=== PATIENT | female | born 1965 | race Caucasian/White ===

== ENCOUNTER 2017-01-13 13:51 | Emergency (ER) | payer MEDICAID, OTHER ==
[~2017-01-13] VITALS: Ht 157.5 cm; Wt 65.8 kg
[2017-01-13] MEDS ORDERED: LEVO50TA5 (14:06)
[2017-01-13] MEDS ORDERED: RISP0.5T3 (14:06)
[2017-01-13] MEDS ORDERED: FLUO10CA9 (14:06)
[2017-01-13] MEDS ORDERED: ADV250INH (14:06)
[2017-01-13] MEDS ORDERED: ATOR1TAB21 (14:06)
[2017-01-13] MEDS ORDERED: ALBU17IN (14:06)
[2017-01-13] MEDS ORDERED: ALBUTEROL SULFATE 2.5 MG/0.5 ML INH NEB SOLN INH ONE (18:15)
[2017-01-13] MEDS ORDERED: IPRATROPIUM 0.5MG/ALBUTEROL 2.5MG INH SOL UD 3ML (DUONEB)(J7620) NEB ONE (18:15)
[2017-01-13] MEDS ORDERED: predniSONE 20 MG TAB PO ONE (18:15)
[2017-01-13] MEDS ORDERED: predniSONE 50 MG TAB PO ONE (18:15)
--- NOTE | 2017-01-13 19:15 | REP ---
Chest x-ray: Two views: History: Shortness of breath, history of right upper lobectomy. Comparison study: 07/15/2014. Findings: Patient is status post right thoracotomy with clips and sutures in the right chest unchanged. 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 There is tenting of the right hemidiaphragm as before. Heart is not enlarged. Lung de [place] are otherwise clear. Pleural angles are sharp. Pulmonary vasculature is not increased. No significant bony abnormality is seen. Impression: Postthoracotomy changes on the right. 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 No acute disease. Signed by Tae Betancourt MD 01/13/2017 07:47 P
[2017-01-13] MEDS ORDERED: PRED20TA PO (19:44)
[2017-01-13 19:52] VITALS: BP 130/70
== END 2017-01-13 19:57 | disposition home or self-care (01) ==
LOC: M ED 16:35
DX: J20.9 Acute bronchitis, unspecified (principal); E78.5 Hyperlipidemia, unspecified; E07.9 Disorder of thyroid, unspecified; F17.210 Nicotine dependence, cigarettes, uncomplicated; Z79.899 Other long term (current) drug therapy; I25.10 Atherosclerotic heart disease of native coronary artery without angina pectoris; J44.9 Chronic obstructive pulmonary disease, unspecified; F41.9 Anxiety disorder, unspecified

== ENCOUNTER 2018-05-31 20:13 | Inpatient (IN) | payer OTHER ==
[2018-05-31] MEDS: IPRATROPIUM 0.5MG/ALBUTEROL 2.5MG INH SOL UD 3ML (DUONEB)(J7620) NEB (20:52)
[2018-05-31 20:55] LABS: ABG BASE EXCESS 3.8 (-2.0-2.0); ABG HCO3 28.6 MEQ/L (22.0-26.0); ABG O2 SATURATION 86.6 % (95.0-99.0); ABG PARTIAL PRESSURE CO2 43.6 mmHg (35.0-45.0); ABG STANDARD HCO3 27.7 MEQ/L (22.0-26.0); ABG TOTAL CO2 29.9 MEQ/L (22.0-29.0); ABG pH (ARTERIAL) 7.434 UNITS (7.350-7.450)
[2018-05-31 21:48] LABS: BASO % 0.4 % (0.0-1.0); EOS % 0.5 % (0.0-3.0); HEMATOCRIT 32.6 % (36.0-47.0); HEMOGLOBIN 10.8 g/dl (12.0-15.5); IMMATURE GRANULOCYTE % 1.3 % (0-3.0); LYMPH # 0.5 10^3/uL (1.5-4.5); LYMPH % 6.5 % (24.0-44.0); MEAN CORPUSCULAR HEMOGLOBIN 30.4 pg (27.0-33.0); MEAN CORPUSCULAR HGB CONC 33.1 g/dl (32.0-36.5); MEAN CORPUSCULAR VOLUME 91.8 fl (80.0-96.0); MONO # 0.8 10^3/uL (0.0-0.8); MONO % 10.8 % (0.0-5.0); NEUTROPHILS # 6.3 10^3/uL (1.8-7.7); NEUTROPHILS % 80.5 % (36.0-66.0); PLATELET COUNT, AUTOMATED 325 10^3/uL (150-450); RED BLOOD COUNT 3.55 10^6/uL (4.00-5.40); RED CELL DISTRIBUTION WIDTH 16.2 % (11.5-14.5); WHITE BLOOD COUNT 7.8 10^3/uL (4.0-10.0)
[2018-05-31] MEDS: LevoFLOXacin IV 500 MG in APPROPRIATE DILUENT 1 EA IV (22:00)
[2018-05-31 22:10] LABS: LACTIC ACID SEPSIS PROTOCOL 0.6 MMOL/L (0.4-2.0)
[2018-05-31 22:11] LABS: ANION GAP 7 MEQ/L (8-16); BLOOD UREA NITROGEN 8 MG/DL (7-18); CALCIUM LEVEL 8.2 MG/DL (8.5-10.1); CARBON DIOXIDE LEVEL 30 MEQ/L (21-32); CHLORIDE LEVEL 99 MEQ/L (98-107); CREATININE FOR GFR 0.52 MG/DL (0.55-1.30); GLOMERULAR FILTRATION RATE > 60.0 (>51); GLUCOSE, FASTING 125 MG/DL (70-100); NT-PRO BNP 188 PG/ML (<125); POTASSIUM SERUM 3.7 MEQ/L (3.5-5.1); SODIUM LEVEL 136 MEQ/L (136-145)
[2018-05-31] MEDS: VANCOMYCIN HCL 750 MG, VIAL MATE ADAPTER 1 EACH in D5W 250 ML IV (22:59)
[2018-05-31] MEDS ORDERED: IPRATROPIUM 0.5MG/ALBUTEROL 2.5MG INH SOL UD 3ML (DUONEB)(J7620) NEB (23:00)
[2018-06-01] MEDS: methylPREDNISolone INJ 125 MG/2 ML VIAL (J2930) IV ×4 (01:30→23:46)
[2018-06-01] MEDS: IPRATROPIUM 0.5MG/ALBUTEROL 2.5MG INH SOL UD 3ML (DUONEB)(J7620) NEB ×4 (01:50→20:48)
[2018-06-01] MEDS: risperiDONE 0.5 MG TAB PO ×3 (02:17→23:46)
[2018-06-01] MEDS: ATORVASTATIN 20 MG TAB PO ×2 (02:17→20:13)
[2018-06-01 03:16] LABS: INFLUENZA A AMPLIFICATION NEGATIVE (NEGATIVE); INFLUENZA B AMPLIFICATION NEGATIVE (NEGATIVE)
[2018-06-01 07:12] LABS: BLOOD UREA NITROGEN 8 MG/DL (7-18); GLUCOSE, FASTING 125 MG/DL (70-100)
[2018-06-01 07:13] LABS: ANION GAP 6 MEQ/L (8-16); CALCIUM LEVEL 8.2 MG/DL (8.5-10.1); CARBON DIOXIDE LEVEL 31 MEQ/L (21-32); CHLORIDE LEVEL 97 MEQ/L (98-107); GLOMERULAR FILTRATION RATE > 60.0 (>51); POTASSIUM SERUM 3.5 MEQ/L (3.5-5.1); SODIUM LEVEL 134 MEQ/L (136-145)
[2018-06-01] MEDS: ONDANSETRON 4MG/2ML VIAL (J2405) IV (08:10)
[2018-06-01] MEDS: LEVOTHYROXINE 50MCG TABLET (0.05MG) PO (08:19)
[2018-06-01] MEDS: FLUoxetine 20 MG CAP PO (08:19)
[2018-06-01] MEDS: ENOXAPARIN 40 MG/0.4 ML SYRINGE (J1650) SC (08:19)
[2018-06-01 11:57] LABS: AMPHETAMINES URINE REFLEX NEGATIVE (NEGATIVE); BARBITURATES URINE REFLEX NEGATIVE (NEGATIVE); BENZODIAZEPINES URINE REFLEX NEGATIVE (NEGATIVE); CANNABINOIDS URINE REFLEX NEGATIVE (NEGATIVE); COCAINE METABOLITE URINE REFLE NEGATIVE (NEGATIVE); METHADONE URINE REFLEX NEGATIVE (NEGATIVE); PHENCYCLIDINE URINE REFLEX NEGATIVE (NEGATIVE)
[2018-06-01 12:37] LABS: OPIATES URINE REFLEX PENDING CONFIRMATION (NEGATIVE)
[2018-06-01] MEDS: LevoFLOXacin IV 750 MG in APPROPRIATE DILUENT 1 EA IV (20:13)
[2018-06-01] MEDS ORDERED: NON-FORMULARY COMPOUNDED MEDICATION PO (21:00)
[2018-06-01] MEDS: diphenhydrAMINE 25 MG CAP PO (21:12)
[2018-06-02] MEDS: IPRATROPIUM 0.5MG/ALBUTEROL 2.5MG INH SOL UD 3ML (DUONEB)(J7620) NEB ×3 (01:22→13:46)
[2018-06-02 06:17] LABS: BASO % 0.2 % (0.0-1.0); HEMATOCRIT 33.5 % (36.0-47.0); IMMATURE GRANULOCYTE % 1.7 % (0-3.0); LYMPH # 0.3 10^3/uL (1.5-4.5); LYMPH % 2.8 % (24.0-44.0); MEAN CORPUSCULAR HEMOGLOBIN 30.5 pg (27.0-33.0); MEAN CORPUSCULAR HGB CONC 32.8 g/dl (32.0-36.5); MEAN CORPUSCULAR VOLUME 92.8 fl (80.0-96.0); MONO # 0.3 10^3/uL (0.0-0.8); MONO % 3.2 % (0.0-5.0); NEUTROPHILS # 9.5 10^3/uL (1.8-7.7); NEUTROPHILS % 92.1 % (36.0-66.0); PLATELET COUNT, AUTOMATED 343 10^3/uL (150-450); RED BLOOD COUNT 3.61 10^6/uL (4.00-5.40); RED CELL DISTRIBUTION WIDTH 16.1 % (11.5-14.5); WHITE BLOOD COUNT 10.3 10^3/uL (4.0-10.0)
[2018-06-02 06:19] LABS: POSITIVE DIFF POS FLAG
[2018-06-02 06:46] LABS: ALBUMIN 2.7 GM/DL (3.2-5.2); ALBUMIN/GLOBULIN RATIO 0.75 (1.00-1.93); ALKALINE PHOSPHATASE 133 U/L (45-117); ALT/SGPT 22 U/L (12-78); ANION GAP 5 MEQ/L (8-16); AST/SGOT 26 U/L (7-37); BILIRUBIN,TOTAL 0.8 MG/DL (0.2-1.0); BLOOD UREA NITROGEN 8 MG/DL (7-18); CARBON DIOXIDE LEVEL 34 MEQ/L (21-32); CHLORIDE LEVEL 102 MEQ/L (98-107); CREATININE FOR GFR 0.64 MG/DL (0.55-1.30); FREE T4 1.29 NG/DL (0.76-1.46); GLOMERULAR FILTRATION RATE > 60.0 (>51); GLUCOSE, FASTING 121 MG/DL (70-100); MAGNESIUM LEVEL 2.2 MG/DL (1.8-2.4); POTASSIUM SERUM 4.8 MEQ/L (3.5-5.1); SODIUM LEVEL 141 MEQ/L (136-145); TOTAL PROTEIN 6.3 GM/DL (6.4-8.2)
[2018-06-02] MEDS: LEVOTHYROXINE 50MCG TABLET (0.05MG) PO (08:26)
[2018-06-02] MEDS: ENOXAPARIN 40 MG/0.4 ML SYRINGE (J1650) SC (08:26)
[2018-06-02] MEDS: methylPREDNISolone INJ 125 MG/2 ML VIAL (J2930) IV (08:26)
[2018-06-02] MEDS: FLUoxetine 20 MG CAP PO (08:26)
[2018-06-02 10:15] LABS: TOTAL T3 75.8 NG/DL (60.0-181.0)
[2018-06-02] MEDS ORDERED: LIDOCAINE 1% MDV 20ML VIAL As Ordered (11:58)
[2018-06-02] MEDS: ACETAMINOPHEN TAB 650MG DOSE (2X325MG) PO (12:51)
[2018-06-03] MEDS ORDERED: LEVOTHYROXINE 50MCG TABLET (0.05MG) PO (06:00)
[2018-06-03] MEDS ORDERED: predniSONE 20 MG TAB PO (09:00)
[2018-06-04 15:06] LABS: Opiates Negative (Cutoff=200)
== END 2018-06-02 16:13 | disposition home or self-care (01) | DRG 952 ==
LOC: M MSPAV 06-01 02:04 → M ED 20:13 → M ED INP 22:56
PROC: 07B63ZX Excision of Left Axillary Lymphatic, Percutaneous Approach, Diagnostic (ICD-10-PCS; principal; 2018-06-02)
DX: J18.9 Pneumonia, unspecified organism (principal); J96.01 Acute respiratory failure with hypoxia; J90 Pleural effusion, not elsewhere classified; C77.3 Secondary and unspecified malignant neoplasm of axilla and upper limb lymph nodes; J44.0 Chronic obstructive pulmonary disease with (acute) lower respiratory infection; Z90.2 Acquired absence of lung [part of]; J44.1 Chronic obstructive pulmonary disease with (acute) exacerbation; F41.9 Anxiety disorder, unspecified; F32.9 Major depressive disorder, single episode, unspecified; E78.5 Hyperlipidemia, unspecified; E03.9 Hypothyroidism, unspecified; R91.8 Other nonspecific abnormal finding of lung field; R60.0 Localized edema; Z85.118 Personal history of other malignant neoplasm of bronchus and lung; Z92.21 Personal history of antineoplastic chemotherapy; Z92.3 Personal history of irradiation; Z87.891 Personal history of nicotine dependence; Y95 Nosocomial condition; Z79.899 Other long term (current) drug therapy; Z91.041 Radiographic dye allergy status

== ENCOUNTER → 2018-06-02 | Outpatient (REF) | payer OTHER | LOC: M LAB REF 12:38 | DX: C34.90 Malignant neoplasm of unspecified part of unspecified bronchus or lung (principal) | CPT/HCPCS: 88300 ==

== ENCOUNTER 2018-06-18 17:58 | Inpatient (IN) | payer OTHER ==
[2018-06-18] MEDS: IPRATROPIUM 0.5MG/ALBUTEROL 2.5MG INH SOL UD 3ML (DUONEB)(J7620) NEB ×2 (18:42→21:47)
[2018-06-18 18:50] LABS: ABG BASE EXCESS 7.3 (-2.0-2.0); ABG HCO3 33.6 MEQ/L (22.0-26.0); ABG O2 SATURATION 89.2 % (95.0-99.0); ABG PARTIAL PRESSURE CO2 56.2 mmHg (35.0-45.0); ABG PARTIAL PRESSURE O2 56.4 mmHg (75.0-100.0); ABG TOTAL CO2 35.4 MEQ/L (22.0-29.0); ABG pH (ARTERIAL) 7.395 UNITS (7.350-7.450)
[2018-06-18 19:17] LABS: BASO % 0.2 % (0.0-1.0); EOS % 0.4 % (0.0-3.0); HEMATOCRIT 31.7 % (36.0-47.0); HEMOGLOBIN 10.5 g/dl (12.0-15.5); IMMATURE GRANULOCYTE % 1.1 % (0-3.0); LYMPH # 0.5 10^3/uL (1.5-4.5); LYMPH % 5.1 % (24.0-44.0); MEAN CORPUSCULAR HEMOGLOBIN 30.3 pg (27.0-33.0); MEAN CORPUSCULAR HGB CONC 33.1 g/dl (32.0-36.5); MEAN CORPUSCULAR VOLUME 91.4 fl (80.0-96.0); MONO # 0.9 10^3/uL (0.0-0.8); NEUTROPHILS # 8.7 10^3/uL (1.8-7.7); NEUTROPHILS % 84.2 % (36.0-66.0); PLATELET COUNT, AUTOMATED 234 10^3/uL (150-450); RED BLOOD COUNT 3.47 10^6/uL (4.00-5.40); RED CELL DISTRIBUTION WIDTH 15.3 % (11.5-14.5); WHITE BLOOD COUNT 10.3 10^3/uL (4.0-10.0)
[2018-06-18 19:28] LABS: INR 1.01; PROTHROMBIN TIME 13.4 SECONDS (12.1-14.4)
[2018-06-18] MEDS: ONDANSETRON 4MG/2ML VIAL (J2405) IV (19:28)
[2018-06-18 19:33] LABS: LIPASE 74 U/L (73-393)
[2018-06-18 19:42] LABS: ALBUMIN 2.8 GM/DL (3.2-5.2); ALKALINE PHOSPHATASE 129 U/L (45-117); ALT/SGPT 26 U/L (12-78); ANION GAP 6 MEQ/L (8-16); AST/SGOT 29 U/L (7-37); BILIRUBIN,DIRECT 0.2 MG/DL (0.0-0.2); BILIRUBIN,TOTAL 0.8 MG/DL (0.2-1.0); BLOOD UREA NITROGEN 11 MG/DL (7-18); CALCIUM LEVEL 8.4 MG/DL (8.5-10.1); CARBON DIOXIDE LEVEL 33 MEQ/L (21-32); CHLORIDE LEVEL 94 MEQ/L (98-107); CPK CREATINE PHOSPHOKINASE 40 U/L (26-192); CREATININE FOR GFR 0.49 MG/DL (0.55-1.30); GLOMERULAR FILTRATION RATE > 60.0 (>51); GLUCOSE, FASTING 110 MG/DL (70-100); POTASSIUM SERUM 3.9 MEQ/L (3.5-5.1); SODIUM LEVEL 133 MEQ/L (136-145); TOTAL PROTEIN 5.6 GM/DL (6.4-8.2); TROPONIN I < 0.02 NG/ML (< 0.10)
[2018-06-18 19:48] LABS: CK-MB VALUE MASS < 1.0 NG/ML (<3.6); NT-PRO BNP 174 PG/ML (<125)
[2018-06-18] MEDS: diphenhydrAMINE INJ 50MG/ML VIAL (J1200) IV (20:35)
[2018-06-18] MEDS ORDERED: ISOVUE-370 76% 100ML VIAL (Q9967) As Ordered (20:58)
[2018-06-19] MEDS: VANCOMYCIN HCL 1,000 MG, VIAL MATE ADAPTER 1 EACH in D5W 250 ML IV (01:15)
[2018-06-19] MEDS: FUROSEMIDE 40 MG/4 ML VIAL (J1940) IV (01:15)
[2018-06-19] MEDS: methylPREDNISolone INJ 125 MG/2 ML VIAL (J2930) IV (01:16)
[2018-06-19] MEDS: IPRATROPIUM 0.5MG/ALBUTEROL 2.5MG INH SOL UD 3ML (DUONEB)(J7620) NEB ×7 (02:00→23:21)
[2018-06-19] MEDS: PIPERACILLIN/TAZOBACTAM SOD 3.375 GM in D5W MINI-BAG PLUS 50 ML IV (02:33)
[2018-06-19] MEDS: AZITHROMYCIN INJ 500 MG, VIAL MATE ADAPTER 1 EACH in D5W 250 ML IV (02:48)
[2018-06-19] MEDS: ATORVASTATIN 20 MG TAB PO ×2 (02:48→21:14)
[2018-06-19] MEDS: risperiDONE 1 MG TAB PO (03:07)
[2018-06-19] MEDS: PIPERACILLIN/TAZOBACTAM SOD 4.5 GM in D5W MINI-BAG PLUS 50 ML IV ×4 (04:19→21:13)
[2018-06-19 04:33] LABS: INFLUENZA A AMPLIFICATION NEGATIVE (NEGATIVE); INFLUENZA B AMPLIFICATION NEGATIVE (NEGATIVE)
[2018-06-19] MEDS: HEPARIN SOD (PORCINE) 5000 UNITS/ML VIAL SC ×3 (06:24→21:13)
[2018-06-19] MEDS: methylPREDNISolone INJ 40 MG/1 ML VIAL (J2920) IV ×2 (09:56→17:16)
[2018-06-19] MEDS: PANTOPRAZOLE 40MG TAB (PROTONIX) PO (09:57)
[2018-06-19 12:37] LABS: HEMATOCRIT 31.9 % (36.0-47.0); HEMOGLOBIN 10.5 g/dl (12.0-15.5); MEAN CORPUSCULAR HEMOGLOBIN 30.3 pg (27.0-33.0); MEAN CORPUSCULAR HGB CONC 32.9 g/dl (32.0-36.5); MEAN CORPUSCULAR VOLUME 92.2 fl (80.0-96.0); PLATELET COUNT, AUTOMATED 227 10^3/uL (150-450); RED BLOOD COUNT 3.46 10^6/uL (4.00-5.40); RED CELL DISTRIBUTION WIDTH 15.1 % (11.5-14.5); WHITE BLOOD COUNT 7.3 10^3/uL (4.0-10.0)
[2018-06-19 13:01] LABS: ANION GAP 8 MEQ/L (8-16); BLOOD UREA NITROGEN 11 MG/DL (7-18); CALCIUM LEVEL 8.4 MG/DL (8.5-10.1); CARBON DIOXIDE LEVEL 33 MEQ/L (21-32); CHLORIDE LEVEL 89 MEQ/L (98-107); CREATININE FOR GFR 0.71 MG/DL (0.55-1.30); GLOMERULAR FILTRATION RATE > 60.0 (>51); GLUCOSE, FASTING 169 MG/DL (70-100); POTASSIUM SERUM 3.6 MEQ/L (3.5-5.1); SODIUM LEVEL 130 MEQ/L (136-145)
[2018-06-19] MEDS: FLUoxetine 10 MG CAP PO (17:16)
[2018-06-19] MEDS: ONDANSETRON 4MG/2ML VIAL (J2405) IV (18:34)
[2018-06-19] MEDS: guaiFENesin ER 600 MG TAB PO (21:14)
[2018-06-20] MEDS: methylPREDNISolone INJ 40 MG/1 ML VIAL (J2920) IV ×3 (00:35→17:55)
[2018-06-20] MEDS: AZITHROMYCIN INJ 500 MG, VIAL MATE ADAPTER 1 EACH in D5W 250 ML IV (00:35)
[2018-06-20] MEDS: risperiDONE 1 MG TAB PO ×2 (00:35→23:12)
[2018-06-20] MEDS: IPRATROPIUM 0.5MG/ALBUTEROL 2.5MG INH SOL UD 3ML (DUONEB)(J7620) NEB ×5 (02:00→19:55)
[2018-06-20] MEDS: HEPARIN SOD (PORCINE) 5000 UNITS/ML VIAL SC ×3 (05:49→21:06)
[2018-06-20] MEDS: PIPERACILLIN/TAZOBACTAM SOD 4.5 GM in D5W MINI-BAG PLUS 50 ML IV ×4 (05:49→23:12)
[2018-06-20] MEDS: guaiFENesin ER 600 MG TAB PO ×2 (09:17→21:05)
[2018-06-20] MEDS: PANTOPRAZOLE 40MG TAB (PROTONIX) PO (09:17)
[2018-06-20] MEDS: FLUoxetine 10 MG CAP PO (17:55)
[2018-06-20] MEDS: ATORVASTATIN 20 MG TAB PO (21:05)
[2018-06-21] MEDS: methylPREDNISolone INJ 40 MG/1 ML VIAL (J2920) IV ×3 (01:46→17:06)
[2018-06-21] MEDS: AZITHROMYCIN INJ 500 MG, VIAL MATE ADAPTER 1 EACH in D5W 250 ML IV (01:46)
[2018-06-21] MEDS: IPRATROPIUM 0.5MG/ALBUTEROL 2.5MG INH SOL UD 3ML (DUONEB)(J7620) NEB ×4 (01:58→20:07)
[2018-06-21] MEDS: PIPERACILLIN/TAZOBACTAM SOD 4.5 GM in D5W MINI-BAG PLUS 50 ML IV ×4 (04:22→22:12)
[2018-06-21] MEDS: HEPARIN SOD (PORCINE) 5000 UNITS/ML VIAL SC ×3 (05:35→22:12)
[2018-06-21] MEDS: PANTOPRAZOLE 40MG TAB (PROTONIX) PO (08:20)
[2018-06-21] MEDS: guaiFENesin ER 600 MG TAB PO ×2 (08:21→20:12)
[2018-06-21 12:10] LABS: HEMATOCRIT 31.2 % (36.0-47.0); HEMOGLOBIN 10.2 g/dl (12.0-15.5); MEAN CORPUSCULAR HEMOGLOBIN 30.4 pg (27.0-33.0); MEAN CORPUSCULAR HGB CONC 32.7 g/dl (32.0-36.5); MEAN CORPUSCULAR VOLUME 92.9 fl (80.0-96.0); PLATELET COUNT, AUTOMATED 286 10^3/uL (150-450); RED BLOOD COUNT 3.36 10^6/uL (4.00-5.40); RED CELL DISTRIBUTION WIDTH 15.6 % (11.5-14.5); WHITE BLOOD COUNT 21.2 10^3/uL (4.0-10.0)
[2018-06-21 12:32] LABS: ANION GAP 3 MEQ/L (8-16); BLOOD UREA NITROGEN 12 MG/DL (7-18); CALCIUM LEVEL 8.8 MG/DL (8.5-10.1); CARBON DIOXIDE LEVEL 37 MEQ/L (21-32); CHLORIDE LEVEL 94 MEQ/L (98-107); CREATININE FOR GFR 0.65 MG/DL (0.55-1.30); GLOMERULAR FILTRATION RATE > 60.0 (>51); GLUCOSE, FASTING 136 MG/DL (70-100); POTASSIUM SERUM 3.9 MEQ/L (3.5-5.1); SODIUM LEVEL 134 MEQ/L (136-145)
[2018-06-21] MEDS: FLUoxetine 10 MG CAP PO (17:06)
[2018-06-21] MEDS: ACETAMINOPHEN TAB 650MG DOSE (2X325MG) PO (20:12)
[2018-06-21] MEDS: ATORVASTATIN 20 MG TAB PO (20:12)
[2018-06-22] MEDS: AZITHROMYCIN INJ 500 MG, VIAL MATE ADAPTER 1 EACH in D5W 250 ML IV (00:26)
[2018-06-22] MEDS: risperiDONE 1 MG TAB PO ×2 (00:26→23:24)
[2018-06-22] MEDS: methylPREDNISolone INJ 40 MG/1 ML VIAL (J2920) IV ×2 (00:26→09:03)
[2018-06-22] MEDS: IPRATROPIUM 0.5MG/ALBUTEROL 2.5MG INH SOL UD 3ML (DUONEB)(J7620) NEB ×4 (01:37→20:00)
[2018-06-22] MEDS: PIPERACILLIN/TAZOBACTAM SOD 4.5 GM in D5W MINI-BAG PLUS 50 ML IV (04:53)
[2018-06-22] MEDS: HEPARIN SOD (PORCINE) 5000 UNITS/ML VIAL SC ×3 (06:02→21:09)
[2018-06-22 06:16] LABS: HEMATOCRIT 32.2 % (36.0-47.0); HEMOGLOBIN 10.2 g/dl (12.0-15.5); MEAN CORPUSCULAR HEMOGLOBIN 29.5 pg (27.0-33.0); MEAN CORPUSCULAR HGB CONC 31.7 g/dl (32.0-36.5); MEAN CORPUSCULAR VOLUME 93.1 fl (80.0-96.0); PLATELET COUNT, AUTOMATED 311 10^3/uL (150-450); RED BLOOD COUNT 3.46 10^6/uL (4.00-5.40); RED CELL DISTRIBUTION WIDTH 15.6 % (11.5-14.5); WHITE BLOOD COUNT 14.5 10^3/uL (4.0-10.0)
[2018-06-22 06:36] LABS: ANION GAP 4 MEQ/L (8-16); BLOOD UREA NITROGEN 10 MG/DL (7-18); C REACTIVE PROTEIN QUANTITATIV 0.34 MG/DL (0.00-0.30); CARBON DIOXIDE LEVEL 38 MEQ/L (21-32); CHLORIDE LEVEL 95 MEQ/L (98-107); CREATININE FOR GFR 0.75 MG/DL (0.55-1.30); FREE T3 1.1 PG/ML (2.2-4.0); FREE T4 1.16 NG/DL (0.76-1.46); GLOMERULAR FILTRATION RATE > 60.0 (>51); GLUCOSE, FASTING 147 MG/DL (70-100); POTASSIUM SERUM 4.3 MEQ/L (3.5-5.1); SODIUM LEVEL 137 MEQ/L (136-145)
[2018-06-22] MEDS: FORMOTEROL FUMARATE 20 MCG/2 ML INHALATION SOLUTION (PERFOROMIST) INH ×2 (08:00→20:08)
[2018-06-22] MEDS: TIOTROPIUM INHALER/CAPSULE (SPIRIVA) INH (08:00)
[2018-06-22] MEDS: BUDESONIDE 0.5 MG/2 ML INHALATION SUSPENSION INH ×2 (08:00→20:08)
[2018-06-22] MEDS: guaiFENesin ER 600 MG TAB PO ×2 (09:03→19:56)
[2018-06-22] MEDS: PANTOPRAZOLE 40MG TAB (PROTONIX) PO (09:03)
[2018-06-22] MEDS: LevoFLOXacin 500 MG TABLET PO (09:04)
[2018-06-22] MEDS: FLUoxetine 10 MG CAP PO (16:51)
[2018-06-22] MEDS: predniSONE 20 MG TAB PO (16:51)
[2018-06-22] MEDS: ATORVASTATIN 20 MG TAB PO (19:55)
[2018-06-22] MEDS: ACETAMINOPHEN TAB 650MG DOSE (2X325MG) PO (23:28)
[2018-06-23] MEDS: IPRATROPIUM 0.5MG/ALBUTEROL 2.5MG INH SOL UD 3ML (DUONEB)(J7620) NEB ×3 (01:06→14:56)
[2018-06-23] MEDS: LevoFLOXacin 500 MG TABLET PO (05:38)
[2018-06-23] MEDS: HEPARIN SOD (PORCINE) 5000 UNITS/ML VIAL SC ×2 (05:38→13:28)
[2018-06-23 05:57] LABS: HEMATOCRIT 31.3 % (36.0-47.0); HEMOGLOBIN 10.3 g/dl (12.0-15.5); MEAN CORPUSCULAR HEMOGLOBIN 30.1 pg (27.0-33.0); MEAN CORPUSCULAR HGB CONC 32.9 g/dl (32.0-36.5); MEAN CORPUSCULAR VOLUME 91.5 fl (80.0-96.0); PLATELET COUNT, AUTOMATED 295 10^3/uL (150-450); RED BLOOD COUNT 3.42 10^6/uL (4.00-5.40); RED CELL DISTRIBUTION WIDTH 15.7 % (11.5-14.5)
[2018-06-23 06:15] LABS: ANION GAP 5 MEQ/L (8-16); BLOOD UREA NITROGEN 9 MG/DL (7-18); CALCIUM LEVEL 9.1 MG/DL (8.5-10.1); CARBON DIOXIDE LEVEL 34 MEQ/L (21-32); CHLORIDE LEVEL 96 MEQ/L (98-107); CREATININE FOR GFR 0.56 MG/DL (0.55-1.30); GLOMERULAR FILTRATION RATE > 60.0 (>51); GLUCOSE, FASTING 90 MG/DL (70-100); POTASSIUM SERUM 3.6 MEQ/L (3.5-5.1); SODIUM LEVEL 135 MEQ/L (136-145)
[2018-06-23] MEDS: TIOTROPIUM INHALER/CAPSULE (SPIRIVA) INH (07:18)
[2018-06-23] MEDS: BUDESONIDE 0.5 MG/2 ML INHALATION SUSPENSION INH (07:19)
[2018-06-23] MEDS: FORMOTEROL FUMARATE 20 MCG/2 ML INHALATION SOLUTION (PERFOROMIST) INH (07:19)
[2018-06-23] MEDS: predniSONE 20 MG TAB PO (09:25)
[2018-06-23] MEDS: PANTOPRAZOLE 40MG TAB (PROTONIX) PO (09:25)
[2018-06-23] MEDS: guaiFENesin ER 600 MG TAB PO (09:25)
== END 2018-06-23 16:15 | disposition home or self-care (01) | DRG 133 ==
LOC: M MS5PR 06-19 02:03 → M ED 17:58 → M ED INP 23:18
DX: J96.21 Acute and chronic respiratory failure with hypoxia (principal); J18.9 Pneumonia, unspecified organism; J91.0 Malignant pleural effusion; C77.1 Secondary and unspecified malignant neoplasm of intrathoracic lymph nodes; C77.3 Secondary and unspecified malignant neoplasm of axilla and upper limb lymph nodes; C34.90 Malignant neoplasm of unspecified part of unspecified bronchus or lung; J44.1 Chronic obstructive pulmonary disease with (acute) exacerbation; J44.0 Chronic obstructive pulmonary disease with (acute) lower respiratory infection; J96.22 Acute and chronic respiratory failure with hypercapnia; Z66 Do not resuscitate; H53.2 Diplopia; E78.5 Hyperlipidemia, unspecified; F32.9 Major depressive disorder, single episode, unspecified; F17.210 Nicotine dependence, cigarettes, uncomplicated; F41.9 Anxiety disorder, unspecified; Z92.21 Personal history of antineoplastic chemotherapy; Z99.81 Dependence on supplemental oxygen; Z92.3 Personal history of irradiation; Z90.2 Acquired absence of lung [part of]; Z79.899 Other long term (current) drug therapy; Z91.041 Radiographic dye allergy status; Y95 Nosocomial condition

== ENCOUNTER → 2018-06-30 | Outpatient (CLI) | payer OTHER | LOC: M ONCR 09:05 | DX: C34.11 Malignant neoplasm of upper lobe, right bronchus or lung (principal); C77.3 Secondary and unspecified malignant neoplasm of axilla and upper limb lymph nodes | CPT/HCPCS: 99201 ==